=== PATIENT | male | born 1945 | race Caucasian/White ===

== ENCOUNTER 2018-12-27 16:33 | Inpatient (IN) ==
[2018-12-27] MEDS ORDERED: Lactulose Oral Soln 20 GM/30 ML UDC PO ONE (16:42)
--- NOTE | 2018-12-27 16:42 | Emergency Department Note ---
Disposition Clinical Impression: FEDERICO (acute kidney injury), Dehydration, Weakness Disposition: Home, Self-Care Condition: Fair Referrals: NONE,PCP [Primary Care Provider] - Forms: ED Satisfaction Letter Time of Disposition: 18:50 Altered Mental Status HPI - General Chief Complaint: ED Back Pain/Injury Stated Complaint: c/o right leg/hip/lower back pain Time Seen by Provider: 12/27/18 16:41 Source: patient Mode of arrival: ambulatory Limitations: no limitations Nursing Notes Reviewed: Yes Vital Signs Reviewed: Yes - History of Present Illness HPI Narrative: 73-year-old Male brought in by his daughter who is his stone cleaner today for frequent falls not acting like himself. He is a history of liver cancer. He states that he only hurts when he walks. He has some hip pain. He has a history of not taking his lactulose as prescribed. Daughter states that he has been more confused recently. No fevers or chills. No abdominal pain. He gets paracentesis every other week and just had it a few days ago. All of his work is done at [facility] and [place] [facility] complaint: altered mental status, confusion - Related Data Home Medications Medication Instructions Recorded Confirmed Tamsulosin [Flomax] 0.4 mg PO DAILY 12/11/14 12/27/18 metFORMIN [Glucophage] 500 mg PO BIDWM 10/14/16 12/27/18 Albuterol Sulfate [Albuterol 2 puff IH AD 11/11/16 12/27/18 Inhaler] Furosemide [Lasix] 40 mg PO DAILY 12/27/18 12/27/18 Gabapentin [Neurontin] 100 mg PO HS 12/27/18 12/27/18 Spironolactone [Aldactone] 100 mg PO BID 12/27/18 12/27/18 Allergies Allergy/AdvReac Type Severity Reaction Status Date / Time No Known Allergies Allergy Verified 10/14/16 13:44 Review of Systems: All other systems are negative except as noted/marked Chart generated with voice recognition software Nursing notes reviewed Old records reviewed Past Medical History - Past Medical History Attestation: Yes The following information was validated with the patient. Source: patient, old records reviewed, nursing notes reviewed Medical history: Reports: diabetes, hyperlipidemia, hypertension, liver disease Surgical history: Reports: herniorrhaphy Psychiatric history: Reports: no psych history - Social History Smoking Status: Former smoker Smokeless Tobacco Status: No Alcohol use: Reports: rarely Drug use: Reports: none Physical Exam - General Limitations: no limitations General appearance: alert, in no apparent distress - Head Head exam: atraumatic, normocephalic, normal inspection - Eye Eye exam: Present: normal appearance, PERRL, EOMI - ENT ENT exam: normal exam, normal oropharynx, mucous membranes moist - Neck Neck exam: Present: normal inspection, full ROM, trachea midline - Chest Chest inspection: Present: normal inspection, symmetric chest wall rise - Respiratory Respiratory exam: Present: normal lung sounds bilaterally - Cardiovascular Cardiovascular exam: Present: regular rate, normal rhythm, normal heart sounds - Abdominal Exam Abdominal exam: Present: hypoactive bowel sounds, organomegaly, ascites. Absent: tenderness, mass, bruit, pulsatile mass, hernia, scar - Extremities Exam Extremities exam: Present: normal inspection, full ROM, normal capillary refill. Absent: tenderness, pedal edema - Expanded Lower Extremity Exam Hip/Pelvis exam: Present: normal inspection, full ROM Upper leg exam: Present: normal inspection, full ROM Knee exam: Present: normal inspection, full ROM Lower leg exam: Present: normal inspection, full ROM Ankle exam: Present: normal inspection, full ROM Foot/toe exam: Present: normal inspection, full ROM Neurovascular/Tendon exam: Present: normal capillary refill. Absent: motor deficit, sensory deficit, tendon deficit Gait: observed and normal - Back Exam Back exam: Present: normal inspection, full ROM. Absent: tenderness - Neurological Exam Neurological exam: Present: alert, oriented X3, CN II-XII intact, normal gait - Psychiatric Psychiatric exam: Present: normal affect, normal mood - Skin Skin exam: Present: warm, dry, other (Patient is multiple contusions over his body with ecchymosis. The skin tear over his left forearm and a small abrasion to his left knee.) Course Vital Signs Temperature 97.6 F 12/27/18 16:36 Pulse Rate 88 12/27/18 16:36 Respiratory Rate 16 12/27/18 16:36 Blood Pressure 81/53 12/27/18 16:36 O2 Sat by Pulse Oximetry 96 12/27/18 16:36 Temperature 97.6 F 12/27/18 16:36 Pulse Rate 89 12/27/18 18:53 Respiratory Rate 20 12/27/18 18:53 Blood Pressure 94/58 12/27/18 18:53 O2 Sat by Pulse Oximetry 98 12/27/18 18:53 Oxygen Delivery Oxygen Delivery Room Air Altered Mental Status - MDM Narrative Medical decision making narrative: Patient is full range of motion of the hip I do not think it is broken however get x-rays because the daughters pretty concerned about this. I also got a CAT scan of his head. He has had increased confusion and altered mental status most likely secondary to hypertension and anemia however he has fallen recently so we should rule this out. Also, we will check the remainder of his laboratory she was something else like signs of infection. Patient's complaining of any fever or pain in his belly but just to be sure. Work shows acute kidney injury and he is hypotensive. We gave some IV fluids and his blood pressure improved. Her main orthostatic however. He is feeling somewhat better. We reviewed the labs and images with the patient patient and his family. We discussed fact that his ammonia is normal. I discussed 101 102 quickly has is concerned that the fluid will end up all in his belly and status and his veins. Daughter agreed with me and we felt it best that we keep him overnight for hydration. Patient was agreeable to this. I spoke with Dr. Daniels who accepted the patient. - Medical Records Medical records reviewed: Yes I reviewed the patient's medical records. - Lab Data Lab results reviewed: Yes I reviewed the patient's lab results. Result diagrams: 12/27/18 16:58 12/27/18 16:58 Lab Results 12/27/18 12/27/18 12/27/18 Range/Units 16:58 16:58 16:58 WBC 5.9 (4.3-11.1) K/mcL RBC 3.59 L (4.19-5.50) M/mcL Hgb 11.4 L (12.9-16.9) g/dL Hct 32.5 L (37.5-50.1) % MCV 90.5 (83.0-100.0) fL MCH 31.8 (28.0-33.3) pg MCHC 35.1 (31.6-35.5) g/dL RDW 15.9 H (11.5-14.5) % Plt Count 36 L (140-400) K/mcL MPV 11.6 (9.4-12.4) fL Immature Gran % 1.7 (0-4) % Seg Neutrophils % 80.1 % Lymphocytes % 7.3 % Monocytes % 9.2 % Eosinophils % 1.4 % Basophils % 0.3 % Neutrophils # 4.7 (1.6-8.9) K/mcL Lymphocytes # 0.4 L (0.6-4.6) K/mcL Monocytes # 0.5 (0.0-1.3) K/mcL Eosinophils # 0.1 (0.0-0.6) K/mcL Basophils # 0.0 (0.0-0.2) K/mcL PT 22.3 H (9.4-12.1) Seconds INR 2.0 APTT 40.2 H (26.0-36.0) Seconds Sodium 128 L (136-145) mEq/L Potassium 3.5 (3.5-5.1) mEq/L Chloride 98 (98-107) mEq/L Carbon Dioxide 23 (23-29) mEq/L BUN 42 H (8-23) mg/dL Creatinine 1.75 H (0.70-1.30) mg/dL Est GFR ( Amer) 46 L (> 60) Est GFR (Non-Af Amer) 38 L (> 60) BUN/Creatinine Ratio 24 (6-26) Glucose 101 (70-105) mg/dL Calculated Osmolality 277 L (280-300) Calcium 8.6 (8.6-10.3) mg/dL Total Bilirubin 3.6 H (0.3-1.0) mg/dL Direct Bilirubin 1.0 H (0.0-0.2) mg/dL Indirect Bilirubin 2.6 H (0.0-1.2) mg/dL AST 24 (13-39) Units/L ALT 24 (7-52) Units/L Alkaline Phosphatase 145 H (34-104) Units/L Ammonia (16-53) mcmol/L Creatine Kinase 58 (30-223) Units/L Troponin I < 0.03 (< 0.04) ng/mL Serum Total Protein 5.6 L (6.4-8.9) g/dL Albumin 3.1 L (3.5-5.7) g/dL Globulin 2.5 (2.4-3.5) g/dL Albumin/Globulin Ratio 1.2 (1.1-2.2) Ethyl Alcohol < 10 (Less than 10) mg/dL 12/27/18 Range/Units 16:58 WBC (4.3-11.1) K/mcL RBC (4.19-5.50) M/mcL Hgb (12.9-16.9) g/dL Hct (37.5-50.1) % MCV (83.0-100.0) fL MCH (28.0-33.3) pg MCHC (31.6-35.5) g/dL RDW (11.5-14.5) % Plt Count (140-400) K/mcL MPV (9.4-12.4) fL Immature Gran % (0-4) % Seg Neutrophils % % Lymphocytes % % Monocytes % % Eosinophils % % Basophils % % Neutrophils # (1.6-8.9) K/mcL Lymphocytes # (0.6-4.6) K/mcL Monocytes # (0.0-1.3) K/mcL Eosinophils # (0.0-0.6) K/mcL Basophils # (0.0-0.2) K/mcL PT (9.4-12.1) Seconds INR APTT (26.0-36.0) Seconds Sodium (136-145) mEq/L Potassium (3.5-5.1) mEq/L Chloride (98-107) mEq/L Carbon Dioxide (23-29) mEq/L BUN (8-23) mg/dL Creatinine (0.70-1.30) mg/dL Est GFR ( Amer) (> 60) Est GFR (Non-Af Amer) (> 60) BUN/Creatinine Ratio (6-26) Glucose (70-105) mg/dL Calculated Osmolality (280-300) Calcium (8.6-10.3) mg/dL Total Bilirubin (0.3-1.0) mg/dL Direct Bilirubin (0.0-0.2) mg/dL Indirect Bilirubin (0.0-1.2) mg/dL AST (13-39) Units/L ALT (7-52) Units/L Alkaline Phosphatase (34-104) Units/L Ammonia 34 (16-53) mcmol/L Creatine Kinase (30-223) Units/L Troponin I (< 0.04) ng/mL Serum Total Protein (6.4-8.9) g/dL Albumin (3.5-5.7) g/dL Globulin (2.4-3.5) g/dL Albumin/Globulin Ratio (1.1-2.2) Ethyl Alcohol (Less than 10) mg/dL - Radiology Data Radiology results reviewed: Yes I reviewed the patient's radiology results. XR/XR hip complete RT IMPRESSION: An acute osseous abnormality is not identified. Large calcified mass in the pelvis measuring 3.7 cm, most likely a bladder stone. This could be further evaluated with CT or ultrasound. D/ / Jon De La O MD / Jon De La O MD Interpreting Provider: Jon De La O MD EXAMINATION: ONE XRAY VIEW OF THE CHEST 12/27/2018 5:21 pm COMPARISON: November 22, 2016 HISTORY: ORDERING SYSTEM PROVIDED HISTORY: altered mental status Acute 2 day history of altered mental status. Initial encounter. FINDINGS: The cardiomediastinal silhouette is within normal range. Lungs are clear. There is no focal pulmonary consolidation, pleural effusion, pneumothorax, or evidence of airspace pulmonary edema. Surgical clips are seen in the abdominal right upper quadrant. XR/XR chest 1V portable IMPRESSION: 1. No acute radiographic abnormality in the chest. D/ / Maged Cameron MD / Maged Cameron MD Interpreting Provider: Maged Cameron MD ~ EXAMINATION: CT OF THE HEAD WITHOUT CONTRAST, 12/27/2018 5:21 pm TECHNIQUE: CT of the head was performed without the administration of intravenous contrast. Dose modulation, iterative reconstruction, and/or weight based adjustment of the mA/kV was utilized to reduce the radiation dose to as low as reasonably achievable. COMPARISON: None HISTORY: ORDERING SYSTEM PROVIDED HISTORY: Altered mental status. Acute altered mental status. Initial encounter. FINDINGS: BRAIN/VENTRICLES: There is no acute intracranial hemorrhage, mass effect or midline shift. No abnormal extra-axial fluid collection. The kim-white differentiation is maintained without evidence of an acute infarct. There is no evidence of hydrocephalus. There are calcified plaques in the cavernous portion of the internal carotid arteries. Basal ganglia calcifications bilaterally. ORBITS: The visualized portion of the orbits demonstrate no acute abnormality. SINUSES: The visualized paranasal sinuses and mastoid air cells demonstrate no acute abnormality. SOFT TISSUES/SKULL: No acute abnormality of the visualized skull or soft tissues. CT/CT head/brain wo con IMPRESSION: 1. No acute intracranial abnormality. 2. Atherosclerosis. D/ / 12/27/2018 17:29:31 Maged Cameron MD / nina Interpreting Provider: Maged Cameron MD - EKG Data EKG attestation: Yes I reviewed and interpreted this EKG. EKG results narrative: EKG interpreted by myself as sinus rhythm with a rate of [address] elevation TPA Checklist - LKW: 3-4.5 hrs Add. Warnings/Precautions Patient/family understanding: The patient/family members have been counseled and understood the risk, benefit, and alternatives of treatment.
[2018-12-27 17:08] LABS: Basophils % 0.3 %; Eosinophils # 0.1 K/mcL (0.0-0.6); Eosinophils % 1.4 %; Hematocrit 32.5 % (37.5-50.1); Hemoglobin 11.4 g/dL (12.9-16.9); Immature Granulocytes % 1.7 % (0-4); Lymphocytes # 0.4 K/mcL (0.6-4.6); Lymphocytes % 7.3 %; Mean Corpuscular HGB Conc 35.1 g/dL (31.6-35.5); Mean Corpuscular Hemoglobin 31.8 pg (28.0-33.3); Mean Corpuscular Volume 90.5 fL (83.0-100.0); Mean Platelet Volume 11.6 fL (9.4-12.4); Monocytes # 0.5 K/mcL (0.0-1.3); Monocytes % 9.2 %; Neutrophils # 4.7 K/mcL (1.6-8.9); Red Blood Count 3.59 M/mcL (4.19-5.50); Red Cell Distribution Width 15.9 % (11.5-14.5); Segmented Neutrophils % 80.1 %; White Blood Count 5.9 K/mcL (4.3-11.1)
[2018-12-27 17:09] LABS: Platelet Count 36 K/mcL (140-400)
[2018-12-27 17:17] LABS: Prothrombin Time 22.3 Seconds (9.4-12.1)
[2018-12-27 17:20] LABS: Activated Partial Thrombo Time 40.2 Seconds (26.0-36.0)
[2018-12-27 17:24] LABS: Alanine Aminotransferase 24 Units/L (7-52); Albumin 3.1 g/dL (3.5-5.7); Albumin/Globulin Ratio 1.2 (1.1-2.2); Alkaline Phosphatase 145 Units/L (34-104); Aspartate Amino Transferase 24 Units/L (13-39); BUN/Creatinine Ratio 24 (6-26); Bilirubin,Indirect 2.6 mg/dL (0.0-1.2); Bilirubin,Total 3.6 mg/dL (0.3-1.0); Blood Urea Nitrogen 42 mg/dL (8-23); Calcium 8.6 mg/dL (8.6-10.3); Carbon Dioxide 23 mEq/L (23-29); Chloride 98 mEq/L (98-107); Creatine Kinase 58 Units/L (30-223); Ethanol < 10 mg/dL (Less than 10); Globulin 2.5 g/dL (2.4-3.5); Glucose 101 mg/dL (70-105); Osmolality,Calculated 277 (280-300); Potassium 3.5 mEq/L (3.5-5.1); Sodium 128 mEq/L (136-145); Total Protein 5.6 g/dL (6.4-8.9); eGFR For African Americans 46 (> 60); eGFR For Non-African Americans 38 (> 60)
[2018-12-27 17:27] LABS: Troponin I < 0.03 ng/mL (< 0.04)
[2018-12-27] MEDS ORDERED: 0.9 % Sodium Chloride 1,000 ML IVC ONE ×2 (17:51→17:55)
[2018-12-27 21:23] LABS: Bilirubin,Urine Negative (Negative); Blood,Urine Negative (Negative); Clarity,Urine Clear (Clear); Color,Urine Yellow (Yellow); Glucose,Urine (UA) Normal (Normal); Ketones,Urine Negative (Negative); Leukocyte Esterase,Urine Negative (Negative); Nitrite,Urine Negative (Negative); Protein,Urine Negative (Neg-Trace); Specific Gravity,Urine 1.015 (1.010-1.025); Urobilinogen,Urine Normal (Normal)
[2018-12-27 21:36] LABS: Amphetamine Screen,Urine Negative ng/mL (Cutoff=1000); Barbiturate Screen,Urine Negative ng/mL (Cutoff=200); Benzodiazepines Screen,Urine Negative ng/mL (Cutoff=200); Cannabinoid Screen,Urine Negative ng/mL (Cutoff = 50); Cocaine Screen,Urine Negative ng/mL (Cutoff= 300); Opiate Screen,Urine Negative ng/mL (Cutoff=300); Phencyclidine Screen,Urine Negative ng/mL (Cutoff=25)
[2018-12-27] MEDS ORDERED: *HR* Promethazine 25 MG/ML VIAL IVP PRN (22:45)
[2018-12-27] MEDS ORDERED: Mag Hydrox/Al Hydrox/Simeth 30 ML UDC PO PRN (22:45)
[2018-12-27] MEDS ORDERED: Naloxone 0.4 MG/ML INJ IVP PRN (22:45)
[2018-12-27] MEDS ORDERED: MOM Conc 10 ML UD.LIQ PO PRN (22:45)
[2018-12-27] MEDS ORDERED: Ibuprofen 400 MG TABLET PO PRN (22:45)
[2018-12-27] MEDS: Spironolactone 25 MG TABLET PO SCH (23:50)
[2018-12-27] MEDS: Gabapentin 100 MG CAPSULE PO SCH (23:55)
[2018-12-27] MEDS: 0.9 % Sodium Chloride 1,000 ML IVC SCH (23:56)
[2018-12-28] MEDS: *HR* LORazepam 0.5 MG TABLET PO PRN (00:08)
[2018-12-28 06:20] LABS: BUN/Creatinine Ratio 27 (6-26); Blood Urea Nitrogen 37 mg/dL (8-23); Calcium 7.8 mg/dL (8.6-10.3); Carbon Dioxide 17 mEq/L (23-29); Chloride 105 mEq/L (98-107); Glucose 158 mg/dL (70-105); Magnesium 1.8 mg/dL (1.6-2.6); Osmolality,Calculated 280 (280-300); Potassium 3.3 mEq/L (3.5-5.1); Sodium 129 mEq/L (136-145); eGFR For African Americans > 60 (> 60); eGFR For Non-African Americans 52 (> 60)
[2018-12-28 06:22] LABS: Basophils % 0.6 %; Eosinophils # 0.1 K/mcL (0.0-0.6); Eosinophils % 2.6 %; Hematocrit 29.6 % (37.5-50.1); Hemoglobin 10.2 g/dL (12.9-16.9); Immature Granulocytes % 1.4 % (0-4); Lymphocytes # 0.4 K/mcL (0.6-4.6); Lymphocytes % 10.3 %; Mean Corpuscular HGB Conc 34.5 g/dL (31.6-35.5); Mean Corpuscular Hemoglobin 31.5 pg (28.0-33.3); Mean Corpuscular Volume 91.4 fL (83.0-100.0); Mean Platelet Volume 11.7 fL (9.4-12.4); Monocytes # 0.3 K/mcL (0.0-1.3); Monocytes % 8.9 %; Neutrophils # 2.7 K/mcL (1.6-8.9); Red Blood Count 3.24 M/mcL (4.19-5.50); Red Cell Distribution Width 15.8 % (11.5-14.5); Segmented Neutrophils % 76.2 %; White Blood Count 3.5 K/mcL (4.3-11.1)
[2018-12-28 06:40] LABS: Platelet Count 32 K/mcL (140-400)
[2018-12-28 07:24] LABS: Platelet Estimate Decreased (Normal)
[2018-12-28] MEDS: *HR* Metformin 500 MG TABLET PO SCH ×2 (08:39→17:37)
[2018-12-28] MEDS: 0.9 % Sodium Chloride 1,000 ML IVC SCH (08:44)
[2018-12-28] MEDS: Furosemide 40 MG TABLET PO SCH (11:23)
[2018-12-28] MEDS: Spironolactone 25 MG TABLET PO SCH ×2 (11:23→20:57)
--- NOTE | 2018-12-28 12:17 | Internal Med History&Physical ---
Date of Encounter: 12/28/18 Time of Encounter: 11:45 Assessment and Plan (1) Multiple falls Current visit: Yes Status: Acute Possibly multifactorial etiology including encephalopathy and FEDERICO/dehydration. Ammonia level normal at 34 in emergency room. IV fluids will be given and orthostatic vital signs will be checked. (2) Hypokalemia Current visit: Yes Status: Acute Potassium level 3.3 today. Supplemental potassium will be given. (3) Hallucination Current visit: Yes Status: Acute Possibly multifactorial etiology including HE and FEDERICO/dehydration. IV fluids will be given and reassess in a.m. (4) Pancytopenia Current visit: Yes Status: Acute Thrombocytopenia consistent since 2013 with significant variation in WBC and hemoglobin. Anemia testing will be done in a.m. (5) Cirrhosis Current visit: Yes Status: Acute Continue Lasix and Aldactone. Qualifiers: Hepatic cirrhosis type: unspecified hepatic cirrhosis Ascites presence: with ascites Qualified Code(s): K74.60 - Unspecified cirrhosis of liver; R18.8 - Other ascites (6) BPH (benign prostatic hyperplasia) Current visit: Yes Status: Chronic Continue Flomax Qualifiers: Lower urinary tract symptom presence: unspecified whether lower urinary tract symptoms present Qualified Code(s): N40.0 - Benign prostatic hyperplasia without lower urinary tract symptoms (7) DM type 2 (diabetes mellitus, type 2) Current visit: Yes Status: Chronic Check hemoglobin A1c in a.m. Continue Glucophage and Accu-Cheks with SSI. Qualifiers: Diabetes mellitus halfway insulin use: without c d still operator use Diabetes mellitus complication status: without complication Qualified Code(s): E11.9 - Type 2 diabetes mellitus without complications (8) Leg cramps Current visit: Yes Status: Acute Supple potassium will be given for hypokalemia. Magnesium level normal. Iron studies will be ordered. (9) FEDERICO (acute kidney injury) Current visit: Yes Status: Acute IV fluids have been ordered. Renal indices will be monitored. (10) Weakness Current visit: Yes Status: Acute Multifactorial etiology likely. Workup and Rx as per above. Internal Medicine - H&P: HPI Chief complaint: Falls, confusion, hallucinations Admitted From: Emergency Dept Plans for Post Hospital Care: Home History of present illness: Mr. Wooten is a 73 year old male who came to emergency room after his daughter reported he has had increasing falls with confusion the past few weeks. She reports he fell 3 days ago while trying to go back into the house and could not get up. He laid outside for 5 hours before being found by family. He has had occasional hallucinations for several weeks. He was evaluated in emergency room was found to have acute renal failure and anemia. He was admitted to [facility] floor for ongoing care needs. 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 He has required paracentesis approximately every 2 weeks since October 2018. These are done at [facility]. He has been diagnosed with primary liver cancer in 2016 and has had radi ofrequency ablation to the malignant liver lesions. There is no known metastases of the liver cancer. There is no known disorders of his exocrine pancreas. He has had cholecystectomy. His daughter reports he reported to her an episode of hematochezia a few weeks ago. He has recently started using a Rollator walker or wheelchair for mobility. Home health PT/OT has been started. He has complained of back pain over the past few days his daughter feels may have developed secondary to falling. He has DJD and occasional leg cramps. There is no documented gout. All history is obtained from his daughter. Past Med Surg Social Fam HX - Past Medical History Medical history: cancer, diabetes, hyperlipidemia, hypertension, liver disease, other Additional medical history: has parenthesis done at [facility] every other week, liver cancer Psychiatric history: no psych history - Past Surgical History Surgical History: herniorrhaphy - Social History Smoking Status: Former smoker Smokeless Tobacco Status: No Alcohol use: none Drug use: none Internal Medicine - H&P: Meds Tamsulosin [Flomax] 0.4 mg PO DAILY 12/11/14 [History] metFORMIN [Glucophage] 500 mg PO BIDWM 10/14/16 [History] Albuterol Sulfate [Albuterol Inhaler] 2 puff IH AD 11/11/16 [History] Furosemide [Lasix] 40 mg PO DAILY 12/27/18 [History] Gabapentin [Neurontin] 100 mg PO HS 12/27/18 [History] Spironolactone [Aldactone] 100 mg PO BID 12/27/18 [History] Allergy/AdvReac Type Severity Reaction Status Date / Time No Known Allergies Allergy Verified 10/14/16 13:44 All Systems PM: A 10-system review of systems was performed and is negative for pertinent f indings except as documented above in the HPI. Review of systems: Gen.: His weight has decreased approximately 15 pounds in the past month Cardiovascular: There is no history of hypertension FL heart failure angina DVT or pulmonary embolus Respiratory: He has not smoked in over 50 years. He has no documented chronic lung disease and he does not use home oxygen GI: As per history of present illness : He has BPH. He had acute renal failure documented in emergency room. A bladder stone was noted on hip x-ray in emergency room. Neurologic: There is no history of large distribution strokes or seizures. Endocrine: He was diagnosed with DM 2 approximately 2015. There is no known thyroid disease. He had hyperlipidemia in the past but is no longer taking medication. Hematology/oncology: He has liver cancer as per history of present illness. He has anemia and thrombocytopenia. Psychiatric: He has appeared depressed since the loss of his grandson a few weeks ago. He does not take medication. There is no known anxiety other mental health diagnoses. [place] skeletal: As per history of present illness - Constitutional Vitals: Temp Pulse Resp BP Pulse Ox 97.9 F 81 16 83/56 94 12/28/18 11:10 12/28/18 11:10 12/28/18 11:10 12/28/18 11:10 12/28/18 11:10 Exam: Gen.: He is a well-developed well-nourished male lying in bed who appears in no acute distress HEENT: Head is atraumatic and normal cephalic. Eyes: EOMI. There is slight scleral icterus. Mouth: Mucosa is moist. Neck: Supple and nontender. There is no thyromegaly or adenopathy noted. Heart: Regular without murmurs gallops or ectopics Lungs: No wheezes or crackles are heard. Abdomen: There is ascites to percussion. The abdomen is nontender to palpation. No masses or guarding are noted. Extremities: There is no cyanosis edema or clubbing noted. Dorsalis pedis and posterior tibial pulses are trace to 1+ palpable bilaterally. Neurologic: Mental status: He is able to answer a few questions but is minimally conversational otherwise. His answers are appropriate. Cranial nerves: Smile is symmetric. Forehead wrinkles bilaterally. Tongue protrudes midline. EOMI. Motor: There is no pronator drift. Cerebellar: Finger to nose is intact bilaterally. Skin: Warm and dry. He has significant suntan of his upper body. He has ecchymoses of various stages on his arms and torso. Internal Med - H&P Results - Labs CBC & Chem 7: 12/28/18 05:15 12/28/18 05:15 Labs: Short CBC 12/27/18 12/28/18 Range/Units 16:58 05:15 WBC 5.9 3.5 L (4.3-11.1) K/mcL Hgb 11.4 L 10.2 L (12.9-16.9) g/dL Hct 32.5 L 29.6 L (37.5-50.1) % Plt Count 36 L 32 L (140-400) K/mcL Neutrophils # 4.7 2.7 (1.6-8.9) K/mcL BMP 12/27/18 12/28/18 16:58 05:15 Sodium 128 L 129 L Potassium 3.5 3.3 L Chloride 98 105 Carbon Dioxide 23 17 L BUN 42 H 37 H Creatinine 1.75 H 1.35 H Glucose 101 158 H Calcium 8.6 7.8 L Cardiac Enzymes 12/27/18 Range/Units 16:58 Troponin I < 0.03 (< 0.04) ng/mL Liver Function 12/27/18 Range/Units 16:58 Total Bilirubin 3.6 H (0.3-1.0) mg/dL Direct Bilirubin 1.0 H (0.0-0.2) mg/dL AST 24 (13-39) Units/L ALT 24 (7-52) Units/L Alkaline Phosphatase 145 H (34-104) Units/L Albumin 3.1 L (3.5-5.7) g/dL Urine 12/27/18 Range/Units 21:15 Urine Color Yellow (Yellow) Urine Clarity Clear (Clear) Urine pH 5.0 (5.0-8.0) pH Units Ur Specific Holt 1.015 (1.010-1.025) Urine Protein Negative (Neg-Trace) mg/dL Urine Glucose (UA) Normal (Normal) mg/dL - Impressions ITS Impressions Chest X-Ray 12/27/18 16:42 IMPRESSION: 1. No acute radiographic abnormality in the chest. D/ / Maged Cameron MD / Maged Cameron MD Interpreting Provider: Maged Cameron MD Hip X-Ray 12/27/18 16:42 IMPRESSION: An acute osseous abnormality is not identified. Large calcified mass in the pelvis measuring 3.7 cm, most likely a bladder stone. This could be further evaluated with CT or ultrasound. D/ / 12/27/2018 17:27:20 Jon De La O MD / nina Interpreting Provider: Jon De La O MD Head CT 12/27/18 16:43 IMPRESSION: 1. No acute intracranial abnormality. 2. Atherosclerosis. D/ / 12/27/2018 17:29:31 Maged Cameron MD / nina Interpreting Provider: Maged Cameron MD
[2018-12-28] MEDS: 0.9 % Sodium Chloride w KCl 20 MEQ/1,000 ML MLS IVC SCH (13:14)
--- NOTE | 2018-12-28 18:54 | Electrocardiograph Report ---
[place] [id number] Test Date: 2018-12-27 Pat Name: Mike Wooten Department: EDP-16 Room: [facility] Gender: M Ways Operator: : 1945 Requested By: Dai Lainez Order Number: [id number] Reading MD: Toney Salinas Measurements Intervals [place] Rate: 86 P: 56 VA: 180 QRS: -46 QRSD: 91 T: 27 QT: 367 QTc: 439 Interpretive Statements Sinus rhythm Atrial premature complex LAD, consider left anterior fascicular block Low voltage, precordial leads Probable anteroseptal infarct, old Electronically Signed On 12-28-2018 18:52:45 EDT by Toney Salinas
[2018-12-28] MEDS: Gabapentin 100 MG CAPSULE PO SCH (20:58)
[2018-12-29] MEDS: 0.9 % Sodium Chloride w KCl 20 MEQ/1,000 ML MLS IVC SCH (04:00)
[2018-12-29 07:41] LABS: Basophils % 0.5 %; Eosinophils # 0.1 K/mcL (0.0-0.6); Eosinophils % 2.5 %; Hematocrit 32.2 % (37.5-50.1); Immature Granulocytes % 1.2 % (0-4); Lymphocytes # 0.4 K/mcL (0.6-4.6); Lymphocytes % 9.4 %; Mean Corpuscular HGB Conc 34.2 g/dL (31.6-35.5); Mean Corpuscular Hemoglobin 31.5 pg (28.0-33.3); Mean Corpuscular Volume 92.3 fL (83.0-100.0); Mean Platelet Volume 11.6 fL (9.4-12.4); Monocytes # 0.4 K/mcL (0.0-1.3); Monocytes % 8.6 %; Neutrophils # 3.2 K/mcL (1.6-8.9); Red Blood Count 3.49 M/mcL (4.19-5.50); Red Cell Distribution Width 15.9 % (11.5-14.5); Segmented Neutrophils % 77.8 %; White Blood Count 4.1 K/mcL (4.3-11.1)
[2018-12-29 07:46] LABS: Platelet Count 35 K/mcL (140-400)
[2018-12-29] MEDS: Furosemide 40 MG TABLET PO SCH (08:29)
[2018-12-29] MEDS: Spironolactone 25 MG TABLET PO SCH (08:29)
[2018-12-29] MEDS: *HR* Metformin 500 MG TABLET PO SCH (08:29)
[2018-12-29] MEDS ORDERED: traMADol 50 MG TABLET PO PRN (09:14)
[2018-12-29 09:43] LABS: Folate 9.8 ng/mL (3.0-16.0)
[2018-12-29 09:54] LABS: Alanine Aminotransferase 23 Units/L (7-52); Alkaline Phosphatase 125 Units/L (34-104); Aspartate Amino Transferase 22 Units/L (13-39); BUN/Creatinine Ratio 30 (6-26); Bilirubin,Total 4.1 mg/dL (0.3-1.0); Blood Urea Nitrogen 40 mg/dL (8-23); Carbon Dioxide 17 mEq/L (23-29); Chloride 106 mEq/L (98-107); Glucose 100 mg/dL (70-105); Osmolality,Calculated 280 (280-300); Phosphorous 2.3 mg/dL (2.7-4.5); Potassium 4.7 mEq/L (3.5-5.1); Sodium 130 mEq/L (136-145); Total Protein 5.1 g/dL (6.4-8.9); eGFR For African Americans > 60 (> 60); eGFR For Non-African Americans 52 (> 60)
[2018-12-29 09:55] LABS: Albumin 2.7 g/dL (3.5-5.7); Albumin/Globulin Ratio 1.1 (1.1-2.2); Globulin 2.4 g/dL (2.4-3.5)
[2018-12-29 11:00] VITALS: BP 90/60
[2018-12-29 11:14] LABS: Estimated Average Glucose 105 mg/dl
[2018-12-29] MEDS: *HR* LORazepam 0.5 MG TABLET PO PRN (12:29)
[2018-12-29 13:14] LABS: % Iron Saturation 28 % (20-55); Ferritin 233 ng/mL (20-250); Iron 40 mcg/dL (65-175); Transferrin 103 mg/dL (203-362)
--- NOTE | 2018-12-29 14:48 | Discharge Summary ---
Date of Encounter: 12/29/18 Time of Encounter: 14:35 - Discharge Diagnosis (1) Multiple falls Priority: Primary Status: Acute (2) Hypokalemia Priority: Secondary Status: Acute (3) Hallucination Priority: Secondary Status: Acute (4) Pancytopenia Priority: Secondary Status: Acute (5) Cirrhosis Priority: Secondary Status: Chronic Qualifiers: Hepatic cirrhosis type: unspecified hepatic cirrhosis Ascites presence: with ascites Qualified Code(s): K74.60 - Unspecified cirrhosis of liver; R18.8 - Other ascites (6) BPH (benign prostatic hyperplasia) Priority: Secondary Status: Chronic Qualifiers: Lower urinary tract symptom presence: unspecified whether lower urinary tract symptoms present Qualified Code(s): N40.0 - Benign prostatic hyperplasia without lower urinary tract symptoms (7) DM type 2 (diabetes mellitus, type 2) Priority: Secondary Status: Chronic Qualifiers: Diabetes mellitus rn long term care insulin use: without senior care use Diabetes mellitus complication status: without complication Qualified Code(s): E11.9 - Type 2 diabetes mellitus without complications (8) Leg cramps Priority: Secondary Status: Acute (9) FEDERICO (acute kidney injury) Priority: Secondary Status: Acute (10) Weakness Priority: Secondary Status: Acute Hospital course: Mr. Wooten is a 73 year old male who came to emergency room after his daughter reported he has had increasing falls with confusion the past few weeks. She reports he fell 3 days ago while trying to go back into the house and could not get up. He laid outside for 5 hours before being found by family. He has had occasional hallucinations for several weeks. He was evaluated in emergency room was found to have acute renal failure and anemia. He was admitted to [facility] for ongoing care needs. Initial orders were written by the emergency room physician. I saw him on December 28 and performed the history and physical. He was given IV fluids but remained borderline hypotensive. BUN and creatinine improved to 40 and 1.33 respectively with estimated GFR 52. I discussed with patient and daughter that he had volume depletion due to diuretics. The dose of Lasix and Aldactone will be reduced at discharge. Phosphorus level returned low at 2.3. He was given Neutra-Phos prior to discharge. His PCP can monitor labs. Anemia testing showed iron 40, transferrin saturation 28, transferrin 103, ferritin 233, B12 476, and folate 9.8. Hemoglobin A1c returned satisfactory at 5.3%. His PCP can determine if metformin should be continued. LFTs were minimally changed on follow-up labs December 29. Total bilirubin had risen to 4.1. I discussed in private conversation with the daughter the patient's present condition and overall poor prognosis. She will consider transition to hospice after discharge. On December 29 the patient was adamant he be discharged home. I offered keeping him additional days in the hospital but he wished to go home. He will follow with his PCP Mitra Kaur CNP within 1 week. He will follow at [facility] as directed. Home health services will be resumed. - Time Spent with Patient Total time spent providing and/or coordinating discharge services: - Discharge Medications Prescriptions: Continued Tamsulosin [Flomax] 0.4 mg PO DAILY metFORMIN [Glucophage] 500 mg PO BIDWM Albuterol Sulfate [Proventil Inhaler] 2 puff IH AD Gabapentin [Neurontin] 100 mg PO HS Changed Spironolactone [Aldactone] 50 mg PO BID #0 Furosemide [Lasix] 20 mg PO DAILY #0 Home Medications: Tamsulosin [Flomax] 0.4 mg PO DAILY 12/11/14 [History] metFORMIN [Glucophage] 500 mg PO BIDWM 10/14/16 [History] Albuterol Sulfate [Proventil Inhaler] 2 puff IH AD 11/11/16 [History] Gabapentin [Neurontin] 100 mg PO HS 12/27/18 [History] Furosemide [Lasix] 20 mg PO DAILY #0 12/29/18 [Rx] Spironolactone [Aldactone] 50 mg PO BID #0 12/29/18 [Rx] Allergies/Adverse Reactions: Allergy/AdvReac Type Severity Reaction Status Date / Time No Known Allergies Allergy Verified 10/14/16 13:44 Date of admission: 12/28/18 12:37 Primary care physician: Mitra Kaur CNP Consults: 12/28/18 10:46 Consult to Occupational Therapy [CONS] Routine Comment: Evaluate, develop and implement POC Reason for Consult: pain Does patient have active BEDREST order?: No Is patient medically & hemodynamically stable?: Yes Patient assessed for mobility or mobilized this visit?: Yes Consult to Physical Therapy [CONS] Routine Comment: Evaluate, develop and implement POC Reason for Consult: weakess Does patient have active BEDREST order?: No Is patient medically & hemodynamically stable?: Yes Patient assessed for mobility or mobilized this visit?: Yes - Constitutional Vitals: Temp Pulse Resp BP Pulse Ox 98.6 F 93 18 90/60 96 12/29/18 10:39 12/29/18 10:39 12/29/18 10:39 12/29/18 10:39 12/29/18 10:39 - Patient Status Disposition: Home Health Service Condition: Fair - Discharge Instructions Follow Up With: NONE,PCP [Primary Care Provider] - 1 week - Diet and Activity Activity: as per physical therapy Diet: advance to your usual diet
--- NOTE | 2018-12-29 14:57 | Physician Discharge Referral ---
Home Health/Hosp Referral Info Transfer to: Home Health Attending Provider: Jeremiah Provider in Charge Post Discharge: PCP (Mitra Kaur CNP) - Diagnosis (1) Multiple falls Priority: Primary Status: Acute (2) Hypokalemia Priority: Secondary Status: Acute (3) Hallucination Priority: Secondary Status: Acute (4) Pancytopenia Priority: Secondary Status: Acute (5) Cirrhosis Priority: Secondary Status: Chronic (6) BPH (benign prostatic hyperplasia) Priority: Secondary Status: Chronic (7) DM type 2 (diabetes mellitus, type 2) Priority: Secondary Status: Chronic (8) Leg cramps Priority: Secondary Status: Acute (9) FEDER[place] (acute kidney injury) Priority: Secondary Status: Acute (10) Weakness Priority: Secondary Status: Acute - Respiratory Orders Smoking Cessation: Smoking cessation has been advised. For more information, call the [place] Tobacco Quit Line at 8-566-JYFY-NOW. - Diet/Nutrition Diet/Nutrition Orders: No Added Salt (IMELDA), No Concentrated Sweets - Activity Activity Orders: Walker - Services Needed Following services are medically necessary services: Nursing, Home Health Aide, Physical Therapy, Occupational Therapy - Transfer Medications Home Medications: Tamsulosin [Flomax] 0.4 mg PO DAILY 12/11/14 [History] metFORMIN [Glucophage] 500 mg PO BIDWM 10/14/16 [History] Albuterol Sulfate [Proventil Inhaler] 2 puff IH AD 11/11/16 [History] Gabapentin [Neurontin] 100 mg PO HS 12/27/18 [History] Furosemide [Lasix] 20 mg PO DAILY #0 12/29/18 [Rx] Spironolactone [Aldactone] 50 mg PO BID #0 12/29/18 [Rx] Allergies/Adverse Reactions: Allergy/AdvReac Type Severity Reaction Status Date / Time No Known Allergies Allergy Verified 10/14/16 13:44 Certification: Further, I certify that my clinical findings support that this patient is homebound (i.e. absences from home require considerable and taxing effort and are for medical reasons or baptism services or infrequently or short duration when for other reasons) because: Homebound Reason: Leaving home requires considerable and taxing effort due to condition (Impaired walking ability secondary to cirrhosis with ascites and hypotension) Attestation: My signature below is to certify that this patient is under my care and that I, or nurse practitioner, or a physician's anesthesia assistant working with me, has a face- to-face encounter with this patient.
== END 2018-12-29 16:37 | disposition home health service (06) | DRG 683 ==
LOC: EMEROOPIK 16:33 → INPPIK 16:33
PROVIDERS: ADMIT Internal Medicine; ATTEND Internal Medicine